=== PATIENT | female | born 1965 | race Caucasian/White ===

== ENCOUNTER → 2018-06-11 | Outpatient (CLI) | payer SELFPAY ==
--- NOTE | 2018-06-11 09:23 | CT ---
Study: CT of the Right Knee. Indication: OSTEOARTHRITIS RT KNEE Technique: Axial CT images were acquired through the right knee without intravenous contrast. Coronal and sagittal reformats performed. This exam was performed according to our departmental dose-optimization program, which includes automated exposure control, adjustment of the mA and/or kV according to patient size and/or use of iterative reconstruction technique. Comparison: None. Findings: Moderate size right knee effusion. 5 mm loose body immediately posterior to the junction lateral patellar facet and apex. Mild to moderate narrowing patellofemoral compartment. Severe narrowing medial compartment with patchy cortical remodeling of both articular surfaces and mild subchondral cystic change. Significant concavity central to posterior aspect lateral tibial plateau from prior healed impaction fracture with the degree of impaction measuring up to 8 mm craniocaudal. ORIF of the proximal tibial fracture has been performed with a medial plate-screw construct. The fracture appears healed. The superior margin of the plate does extend cephalad to the medial tibial plateau by 3.5 mm and closely approximates the inferomedial margin medial femoral condyle. This could serve as a site of impingement. Small to moderate tricompartmental joint line osteophytes. No new fracture. Mild anterior subcutaneous edema. Impression: Status post ORIF of a tibial plateau fracture fracture which has healed with persistent impaction of the central an posterior aspect of the lateral tibial plateau. In addition, the superior margin of the medial plate extends superiorly to the joint line and closely approximates the medial femoral condyle. This can produce impingement. 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 Moderate size knee effusion with a tiny loose body at the lateral patellofemoral joint line. Electronically signed by: Russell Nelson MD 06/11/2018 9:22 AM [facility]
== END ==
LOC: CT 08:17
PROVIDERS: ATTEND Orthopaedic Surgery
DX: M17.11 Unilateral primary osteoarthritis, right knee (principal); S82.101D Unspecified fracture of upper end of right tibia, subsequent encounter for closed fracture with routine healing; M25.461 Effusion, right knee; Z98.890 Other specified postprocedural states